=== PATIENT | female | born 1990 | race Caucasian/White ===

== ENCOUNTER 2019-01-23 17:50 | Emergency (ER) | payer OTHER ==
--- NOTE | 2019-01-23 18:18 | ED.PDOC ---
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 She said the low back pain feels like her menstrual cycles but the pelvic pain is different. It is cramping in nature and bilateral. It was intermittent but today it has become constant. All of her deliveries were by scheduled at 38 weeks so she says she does not know what contractions feel like. She has had no vaginal bleeding or spotting. No other complaints. Timing/Duration: other - 3 days Severity: moderate Improving Factors: nothing Worsening Factors: nothing Associated Symptoms: other - as in HPI Allergies/Adverse Reactions: Allergies Erythromycin Allergy (Verified 12/15/14 14:33) Hives Penicillins Allergy (Verified 12/15/14 14:33) Hives Sulfa Antibiotics Allergy (Verified 12/15/14 14:33) Rash Home Medications: Ambulatory Orders Acetaminophen W/ Codeine [Tylenol W/ CODEINE #3] 1 ea PO Q4-6H PRN #20 12/15/14 Azithromycin 250 mg PO DAILY 12/15/14 Tramadol HCl [Ultram] 50 mg PO Q6HR #20 tab 12/15/14 Review of Systems - Review of Systems Constitutional: States: no symptoms reported EENTM: States: no symptoms reported Respiratory: States: no symptoms reported Cardiology: States: no symptoms reported Gastrointestinal/Abdominal: States: see HPI Genitourinary: States: see HPI Musculoskeletal: States: no symptoms reported Skin: States: no symptoms reported Neurological: States: no symptoms reported Endocrine: States: no symptoms reported Hematologic/Lymphatic: States: no symptoms reported Past Medical History (General) - Patient Medical History Hx Stroke: No Hx Congestive Heart Failure: No Hx Diabetes: No Hx MRSA: No - Vaccination History Hx Tetanus, Diphtheria Vaccination: No Hx Influenza Vaccination: No - Social History Hx Tobacco Use: Yes - Female History Patient : No Family Medical History - Family History Mother Living Status: Hx Family Cancer: Yes Physical Exam - Physical Exam General Appearance: Alert Eye Exam: bilateral normal Ears, Nose, Throat: normal ENT inspection Neck: non-tender, full range of motion, supple Respiratory: lungs clear, normal breath sounds Cardiovascular/Chest: normal peripheral pulses, regular rate, rhythm Gastrointestinal/Abdominal: normal bowel sounds, non tender, soft, other - gravid Back Exam: normal inspection, no CVA tenderness Extremity: normal range of motion, non-tender, normal inspection Neurologic: no motor/sensory deficits, alert, normal mood/affect, oriented x 3 Skin Exam: normal color Lymphatic: no adenopathy Progress - Progress Progress: 01/23/19 19:34 Laboratory Tests 01/23/19 01/23/19 01/23/19 18:24 18:24 18:30 WBC 13.8 H RBC 4.09 L Hgb 13.0 Hct 38.0 MCV 93.0 MCH 31.8 H MCHC 34.2 RDW 15.6 H Plt Count 249 MPV 7.5 Absolute Neuts (auto) 11.50 H Absolute Lymphs (auto) 1.50 Absolute Monos (auto) 0.60 Absolute Eos (auto) 0.10 Absolute Basos (auto) 0.10 Neutrophils % 83.2 H Lymphocytes % 11.2 L Monocytes % 4.6 Eosinophils % 0.6 L Basophils % 0.4 Sodium 139 Potassium 3.6 Chloride 109 Carbon Dioxide 21 Anion Gap 12.6 BUN 8 Creatinine 0.52 L BUN/Creatinine Ratio 15.4 Random Glucose 118 H Serum Osmolality 277.0 Calcium 8.8 Total Bilirubin 0.2 AST 19 ALT 20 Alkaline Phosphatase 79 Serum Total Protein 6.5 Albumin 3.1 L Globulin 3.4 Albumin/Globulin Ratio 0.9 L Urine Color Yellow Urine Appearance Sl cloudy Urine pH 6.0 Ur Specific [place] >= 1.030 Urine Protein 30 Urine Glucose (UA) Negative Urine Ketones Trace Urine Blood Negative Urine Nitrite Negative Urine Bilirubin Small H Urine Urobilinogen 1.0 Ur Leukocyte Esterase Negative Urine RBC 0-1 Urine WBC 0-1 Ur Epithelial Cells 20-30 Amorphous Sediment 2+ Urine Bacteria 2+ H Urine Mucus Large FHTs 127. Cervix closed. I spoke with Dr. Yin and it was agreed that the patient should go to [facility] for monitoring. The patient elected to go by private vehicle. Care instructions given. E.R. warnings given. Questions were elicited and answered. Patient voiced understanding and agreement with the plan. Departure - Departure Clinical Impression: Pelvic pain affecting in third trimester, antepartum Disposition: Transfer to Hospital Condition: Good Departure Forms: ED Discharge - Pt. Copy, Patient Portal Self Enrollment Diet: other - NPO Activity: other - as per your regular doctor Referrals: Cipriano Yin MD [Primary Care Provider] - 1-2 Weeks Home Medications: Ambulatory Orders Acetaminophen W/ Codeine [Tylenol W/ CODEINE #3] 1 ea PO Q4-6H PRN #20 12/15/14 Azithromycin 250 mg PO DAILY 12/15/14 Tramadol HCl [Ultram] 50 mg PO Q6HR #20 tab 12/15/14 Additional Instructions: Go directly to the E.R. at [place] in order to be admitted to Labor and Delivery for monitoring.
[2019-01-23 20:21] VITALS: BP 110/75; TEMP 98.2; O2SAT 99
== END 2019-01-23 20:00 | disposition short-term general hospital (02) ==
LOC: ER 17:50
DX: O99.89 Other specified diseases and conditions complicating pregnancy, childbirth and the puerperium (principal); R10.2 Pelvic and perineal pain; M54.5 Low back pain; Z3A.30 30 weeks gestation of pregnancy; Z87.891 Personal history of nicotine dependence; Z88.1 Allergy status to other antibiotic agents; Z88.2 Allergy status to sulfonamides; Z88.0 Allergy status to penicillin